=== PATIENT | male | born 1955 | race African-American/Black ===

== ENCOUNTER → 2017-03-18 | Outpatient (CLI) | payer OTHER ==
--- NOTE | ~2017-03-18 | MR113 ---
[facility] A Service of [facility] RADIOLOGY TEXT RESULTS PATIENT: CELESTINO JUNG LOCATION: [facility] : 53 UNIT #: [id number] AGE: [address]: XOCHILT SHUKLA SEX: M ORDER DR: [id number] [facility] [address] [place], [place] [address] [id number] O MR#: [id number] Acc #: [id number] NAME: CELESTINO JUNG : 1955 SEX: M STUDY DATE/TIME: 03/18/2017 8:21 UNIT: [facility] ROOM: STUDY DESCRIPTION: MR Lumbar Wo Contrast Attending Physician: Xochlit Shukla M.D. Referring Physician: Xochilt Shukla M.D. Ordering Physician: Staff Doctor Not On Primary Care Physician: Generic Doctor MRI CENTER REPORT This report is preliminary unless electronic signature is present. EXAM Lumbar spine MRI HISTORY Back pain radiating to both legs chronically over the past 20 years. TECHNIQUE Multiplanar imaging of the lumbar spine was performed with short and long TR. FINDINGS Degenerative changes are seen at all lumbar discs. At L1-L2, the disc is desiccated with broad-based posterior disc bulging and moderate bilateral facet disease. Central spinal stenosis is moderate. Foraminal stenosis is mild to moderate bilaterally and symmetric from one side to the other. At L2-L3, the disc is degenerated with disc space narrowing and broad-based posterior disc bulging accompanied by moderate bilateral facet hypertrophy with thickening of the ligamentum flava. Central stenosis is moderate. Foraminal stenosis is moderate bilaterally and symmetric from 1 side to the other. At L3-4, there is disc space collapse with reactive endplate changes and broad-based posterior disc bulging accompanied by moderate bilateral facet disease. Central stenosis is severe. Foraminal stenosis is moderately severe bilaterally and fairly symmetric from one side to the other. At L4-5, the disc is collapsed with broad-based posterior disc bulging and osteophyte formation accompanied by moderate bilateral facet disease. There is a slight degenerative retrolisthesis. Central stenosis is moderate. Foraminal stenosis is moderately severe bilaterally and [facility] A Service of [facility] RADIOLOGY TEXT RESULTS PATIENT: CELESTINO JUNG [facility] UNIT #: [id number] AGE: [address]: XOCHILT SHUKLA SEX: M ORDER DR: symmetric from one side to the other. At L5-S1, the disc is degenerated. There is broad-based posterior disc bulging with osteophytes that extends a little more prominently to the left than to the right accompanied by mild bilateral facet disease. Central stenosis is mild. Foraminal stenosis is moderately severe on both sides and symmetric. The conus is normal. There is mild fatty infiltration of the filum terminale without thickening or mass. This is felt to be incidental. There is no evidence of marrow edema to suggest an acute fracture. No paraspinous masses are seen. IMPRESSION Multilevel lumbar spondylosis from degenerative disc and facet disease as described above [id number]. Central stenosis is most severe at L3-4. Foraminal stenosis is significant at all 4 lower lumbar levels bilaterally. No discrete disc herniation is seen. Dictated by... Gavin Shoemaker M.D. THIS IS AN ELECTRONICALLY VERIFIED REPORT Gavin Shoemaker M.D. at 03/19/2017 4:10 PM DANIEL/manuel TD: 03/19/2017 11:18 JOB #: [id number] MRI CENTER REPORT Page 1 of 1 COPY
== END | disposition home or self-care (01) ==
LOC: CMRI 07:45
DX: M54.9 Dorsalgia, unspecified (principal); R29.898 Other symptoms and signs involving the musculoskeletal system; M47.896 Other spondylosis, lumbar region; M51.36 Other intervertebral disc degeneration, lumbar region; M48.06 Spinal stenosis, lumbar region
CPT/HCPCS: 72148